=== PATIENT | female | born 1945 | race Caucasian/White ===

== ENCOUNTER 2017-03-08 10:27 | Inpatient (IN) | payer OTHER ==
[~2017-03-08] VITALS: Ht 160 cm; Wt 101.8 kg
[2017-03-08] VITALS (11 sets, daily range): BP systolic 122–157; BP diastolic 57–81
[~2017-03-08 10:27] MED LIST: CRESTOR10 MG PO; DILAUDID2 MG PO; IMODIUM A-1 MG/7.5 M PO; LEXAPRO20 MG PO; LISINOPRIL20 MG PO; LISINOPRIL40 MG PO; METOPROLOL SUCC25 MG PO; OXYCONTIN10 MG PO; PHENERGAN25 MG PR; PROMETHAZINE HC25 M1 PO; VALIUM10 MG PO; VICODIN 5-3001 EACH PO
[2017-03-08 12:06] LABS: HEMATOCRIT 18.8 % (36.0-46.0); MCH 21.4 PG (29.0-34.0); MCHC 27.1 G/DL (30.0-36.0); MEAN PLAT.VOLUME 9.2 uM^3 (9.5-12.4); NRBC (%) 0.3 /100 WBC (0-0); PLATELET COUNT 328 K/uL (156-360); RBC DIS.WIDTH-CV 16.4 % (11.8-14.6); RBC DIS.WIDTH-SD 47.1 % (39-53); RED BLOOD COUNT 2.38 M/uL (3.80-5.20); WHITE BLOOD COUNT 7.5 K/uL (4.1-10.2)
[2017-03-08 12:10] LABS: CHLORIDE 109 mEq/L (99-109); POTASSIUM 4.9 mEq/L (3.7-5.4); SODIUM 140 mEq/L (136-147)
[2017-03-08 12:12] LABS: GLUCOSE 88 mg/dL (70-99)
[2017-03-08 12:13] LABS: ANION GAP 9 MEQ/L (2-14)
[2017-03-08 12:16] LABS: GFR ESTIMATE (CALCULATED) 40 mL/min/
[2017-03-08 12:17] LABS: UREA NITROGEN (BUN) 24 mg/dL (9-23)
[2017-03-08 13:14] LABS: RETIC HGB EQUIVALENT 19.5 (28-36); RETICULOCYTE COUNT 1.9 % (0.5-1.8)
[2017-03-08] MEDS ORDERED: HYDROCODON-ACE1 EAC9 PO (13:44)
[2017-03-08 14:32] LABS: CHLORIDE 112 mEq/L (99-109); SODIUM 142 mEq/L (136-147)
[2017-03-08 14:34] LABS: GLUCOSE 90 mg/dL (70-99)
[2017-03-08 14:35] LABS: ANION GAP 7 MEQ/L (2-14)
[2017-03-08 14:36] LABS: TOTAL BILIRUBIN 0.2 mg/dL (0.0-1.0)
[2017-03-08 14:37] LABS: ALKALINE PHOSPHATASE 52 IU/L (3-129)
[2017-03-08 14:38] LABS: GFR ESTIMATE (CALCULATED) 43 mL/min/
[2017-03-08 14:39] LABS: UREA NITROGEN (BUN) 23 mg/dL (9-23)
[2017-03-08 14:45] LABS: IRON < 10 MCG/DL (35-150)
[2017-03-08 16:11] LABS: GLOBULINS 2.3 G/DL (2.3-3.5)
[2017-03-09] VITALS (8 sets, daily range): BP systolic 146–211; BP diastolic 67–92
[2017-03-09 06:44] LABS: HEMATOCRIT 23.7 % (36.0-46.0); MCH 23.8 PG (29.0-34.0); MCHC 30.4 G/DL (30.0-36.0); MCV 78.2 FL (83-99); RBC DIS.WIDTH-CV 15.9 % (11.8-14.6); RBC DIS.WIDTH-SD 45.1 % (39-53); WHITE BLOOD COUNT 6.9 K/uL (4.1-10.2)
[2017-03-09 07:01] LABS: RED BLOOD COUNT 3.03 M/uL (3.80-5.20)
[2017-03-09 07:09] LABS: PLATELET COUNT UNABLE TO REPORT K/uL (156-360)
[2017-03-09 10:52] LABS: URINE TOTAL PROTEIN < 4 MG/DL (0-10)
[2017-03-10 01:13] VITALS: BP 136/64
[2017-03-10 07:16] VITALS: BP 187/79
[2017-03-10 08:02] LABS: HEMATOCRIT 26.3 % (36.0-46.0); MCH 24.8 PG (29.0-34.0); MCHC 31.2 G/DL (30.0-36.0); MCV 79.7 FL (83-99); MEAN PLAT.VOLUME 9.1 uM^3 (9.5-12.4); PLATELET COUNT 326 K/uL (156-360); RBC DIS.WIDTH-CV 15.9 % (11.8-14.6); RBC DIS.WIDTH-SD 45.7 % (39-53); WHITE BLOOD COUNT 7.1 K/uL (4.1-10.2)
[2017-03-10 08:22] LABS: ANION GAP 8 MEQ/L (2-14); CHLORIDE 110 MEQ/L (99-109); GFR ESTIMATE (CALCULATED) 52 mL/min/; GLUCOSE 93 mg/dL (70-99); POTASSIUM 4.1 MEQ/L (3.7-5.4); SAMPLE HEMOLYSIS CHECK 0; SAMPLE ICTERIC CHECK 0; SAMPLE LIPEMIA CHECK 0; SODIUM 142 MEQ/L (136-147); UREA NITROGEN (BUN) 12 mg/dL (9-23)
[2017-03-10 10:05] LABS: ALBUMIN 3.46 G/DL (3.6-4.9); ALBUMIN PERCENT 58.6 % (49.3-67.1); ALPHA-1 GLOBULIN 0.34 G/DL (0.15-0.40); ALPHA-1 PERCENT 5.7 % (2.1-5.5); ALPHA-2 GLOBULIN 0.72 G/DL (0.45-0.85); ALPHA-2 PERCENT 12.2 % (6.2-11.6); BETA PERCENT 12.1 % (8.9-15.8); GAMMA PERCENT 11.4 % (8.6-18.6)
[2017-03-10 14:22] VITALS: BP 188/83
[2017-03-10 15:17] VITALS: BP 172/77
[2017-03-10 19:12] LABS: HEMATOCRIT 28.7 % (36.0-46.0); MCV 82.2 FL (83-99)
[2017-03-10 23:43] VITALS: BP 182/82
[2017-03-11 03:15] VITALS: BP 193/84
[2017-03-11 04:38] VITALS: BP 180/79
[2017-03-11 06:50] LABS: HEMATOCRIT 29.6 % (36.0-46.0); MCH 24.1 PG (29.0-34.0); MCHC 29.7 G/DL (30.0-36.0); MCV 81.1 FL (83-99); MEAN PLAT.VOLUME 8.8 uM^3 (9.5-12.4); PLATELET COUNT 303 K/uL (156-360); RBC DIS.WIDTH-CV 16.4 % (11.8-14.6); RBC DIS.WIDTH-SD 48.6 % (39-53); RED BLOOD COUNT 3.65 M/uL (3.80-5.20); WHITE BLOOD COUNT 7.1 K/uL (4.1-10.2)
[2017-03-11 07:11] LABS: ANION GAP 10 MEQ/L (2-14); CHLORIDE 108 MEQ/L (99-109); GFR ESTIMATE (CALCULATED) 58 mL/min/; GLUCOSE 126 mg/dL (70-99); SAMPLE HEMOLYSIS CHECK 0; SAMPLE ICTERIC CHECK 0; SAMPLE LIPEMIA CHECK 0; SODIUM 140 MEQ/L (136-147); UREA NITROGEN (BUN) 8 mg/dL (9-23)
[2017-03-11 07:17] VITALS: BP 164/76
[2017-03-11] MEDS ORDERED: PROTONIX40 MG PO (12:01)
[2017-03-11 12:59] LABS: MCV 81.3 FL (83-99)
[2017-03-11 15:13] VITALS: BP 158/84
[2017-03-11 17:49] LABS: HEMATOCRIT 26.8 % (36.0-46.0); MCV 81.7 FL (83-99)
[2017-03-11 23:17] VITALS: BP 150/74
[2017-03-12 06:57] LABS: HEMATOCRIT 26.6 % (36.0-46.0); MCV 81.6 FL (83-99)
[2017-03-12 08:04] VITALS: BP 164/73
[2017-03-12] MEDS ORDERED: IRON325 M1 PO (11:00)
[2017-03-12] MEDS ORDERED: REGLAN10 MG PO (11:00)
[2017-03-12 12:20] VITALS: BP 156/69
== END 2017-03-12 13:18 | disposition home or self-care (01) | DRG 812 ==
LOC: EME 10:27 → 5SOUTH 12:40 → EDOF 12:40 → ENRESERV 12:42 → EDOF 13:03 → 5SOUTH 14:47
PROVIDERS: Emergency Medicine; Family Medicine; Hospitalist; Physician Assistant; Physician Assistant Medical
PROC: 30233N1 Transfusion of Nonautologous Red Blood Cells into Peripheral Vein, Percutaneous Approach (ICD-10-PCS; 2017-03-08)
PROC: 0DB68ZX Excision of Stomach, Via Natural or Artificial Opening Endoscopic, Diagnostic (ICD-10-PCS; principal; 2017-03-09)
PROC: 0DJD8ZZ Inspection of Lower Intestinal Tract, Via Natural or Artificial Opening Endoscopic (ICD-10-PCS; 2017-03-10)
DX: D50.9 Iron deficiency anemia, unspecified (principal); K25.9 Gastric ulcer, unspecified as acute or chronic, without hemorrhage or perforation; K64.8 Other hemorrhoids; K44.9 Diaphragmatic hernia without obstruction or gangrene; N17.9 Acute kidney failure, unspecified; M79.7 Fibromyalgia; I10 Essential (primary) hypertension; G43.909 Migraine, unspecified, not intractable, without status migrainosus; G89.29 Other chronic pain; M25.519 Pain in unspecified shoulder; M54.2 Cervicalgia; M62.838 Other muscle spasm; E78.5 Hyperlipidemia, unspecified; F06.4 Anxiety disorder due to known physiological condition; F17.210 Nicotine dependence, cigarettes, uncomplicated; Z82.3 Family history of stroke; Z80.0 Family history of malignant neoplasm of digestive organs
CPT/HCPCS: 71010; 80048; 80053; 80069; 82607; 82746; 83540; 83921 90; 84165; 84166; 84443; 84466; 85014; 85018; 85027; 85045; 86850; 86900; 86901; 86920; 88305; 88342 TC; 90686; 93005; 99281; 99285; C9113; J0360; J1940; J2405; J2765; J3420; J7030; P9016